=== PATIENT | female | born 1960 | race African-American/Black ===

== ENCOUNTER 2023-03-05 17:24 | Emergency (ER) | payer MEDICAID, OTHER ==
[~2023-03-05] VITALS: Ht 165.1 cm; Wt 67.3 kg
[2023-03-05 17:28] VITALS: BP 169/89
[2023-03-05] MEDS ORDERED: ONDANSETRON HCL 4MG/2ML INJ IV STA (19:14)
[2023-03-05] MEDS ORDERED: SODIUM CHLORIDE 0.9% 1,000 ML IV ONE (19:15)
[2023-03-05 20:03] LABS: BASOPHILS % 0.7 % (0.0-2.0); EOSINOPHILS % 0.3 % (0.0-5.0); HEMATOCRIT. 44.4 % (36.0-48.0); LYMPHOCYTES % 31.3 % (20.0-50.0); MEAN CORPUSCULAR HEMOGLOBIN 27.6 pg (28.0-32.0); MEAN CORPUSCULAR VOLUME 81.7 fL (81.0-99.0); MEAN PLATELET VOLUME 7.5 fl (7.4-10.4); MONOCYTES % 7.3 % (2.0-8.0); NEUTROPHILS % 60.4 % (40.0-76.0); PLATELET 295 x1000/uL (130-400); RED BLOOD CELL COUNT 5.44 mill/uL (4.2-5.4); RED CELL DISTRIBUTION WIDTH 13.2 % (11.6-14.6)
[2023-03-05 20:10] LABS: CHLORIDE 104 mEq/L (98-107)
[2023-03-05] MEDS ORDERED: FAMOTIDINE 20MG TABLET PO ONE (23:00)
[2023-03-05] MEDS ORDERED: DICYCLOMINE HCL 10MG CAPSULE PO ONE (23:00)
[2023-03-05] MEDS ORDERED: FAMO-135 MT (23:13)
[2023-03-05] MEDS ORDERED: DICY10CA88 MT (23:13)
== END 2023-03-05 23:17 | disposition home or self-care (01) ==
LOC: ER 17:24
DX: R53.1 Weakness (principal)
CPT/HCPCS: 36415; 76705; 80053; 83690; 85025; 96361; 96374; 99285; J2405; J7030; Z7610